=== PATIENT | female | born 1950 | race Two or more races ===

== ENCOUNTER → 2024-03-17 | Outpatient (CLI) | payer MEDICARE, SELFPAY ==
--- NOTE | 2024-03-17 08:30 | XR_ITS ---
Exam: MRI knee without contrast, left complete Date and time of exam: March 17, 2024 0843 hours INDICATIONS: Patient fell 8 months ago with injury to the knee, knee pain instability joint locking post injury Technique: Multiple axial, coronal, and sagittal sections on the knee have been obtained. T2-Weighted sagittal, fat-suppressed images, TR 3,500, TE 62, T2 weighted coronal fat-saturated images, TR 3,500, TE 62 Proton density sagittal sections, TR 1800, TE 31. T-1 weighted coronal images, TR 524, TE 13.0 Findings: Medial meniscus anterior horn intact. Medial meniscus, body is horizontal linear tear. Posterior horn medial meniscus horizontal linear tear communicating inferior articular surface near the inner margin. Lateral meniscus anterior horn is intact Lateral meniscus, body is intact Posterior horn lateral meniscus horizontal linear tear communicating inner margin Anterior cruciate ligament moderate sprain Posterior cruciate ligament appears intact. Knee effusion is small. Quadriceps and patellar tendons appear intact. There is no evidence of tendinosis. Inflammatory change or fracture of Hoffa's fat pad is not seen. Medial patellar facet demonstrates moderate thinning. Lateral patellar facet cartilage demonstrates moderate thinning. Trochlear cartilage demonstrates moderate thinning. Marrow signal adequate. Medial collateral ligament appears intact. No meniscocapsular separation is seen. Illiotibial band and fibular collateral ligament are intact. Biceps femoris tendons appear intact. Medial femoral condylar articular cartilage demonstrates moderate thinning. Lateral femoral condylar articular cartilage demonstratesmoderate thinning. Tibial plateau cartilage demonstrates moderate thinning. Impression: Tears of the medial lateral menisci as above Moderate sprain anterior cruciate ligament
== END | disposition home or self-care (01) ==
PROVIDERS: PCP Family Medicine; Referring Provider Physician Assistant Medical; Visit Provider Physician Assistant Medical
DX: S83.282A Other tear of lateral meniscus, current injury, left knee, initial encounter (principal); W19.XXXA Unspecified fall, initial encounter
CPT/HCPCS: 73721

== ENCOUNTER → 2024-03-30 | Outpatient (CLI) | payer MEDICARE, SELFPAY ==
--- NOTE | 2024-03-30 14:00 | XR_ITS ---
Examination: CT right hand, without contrast. 2-D sagittal reconstructions. 2-D coronal reconstructions. 3-D reconstructions. Date and time of exam:March 30, 2024 1345 hours INDICATIONS: Patient fell July 2023 with injury to the hand, persistent hand pain, MRI hand February 17, 2024 12 x 6 x 4 mm cystic lesion distal aspect proximal phalanx fourth digit CTDI: vol (mGy):3.27 DLP: (mGycm):86.9 Technique: Multiple 1.25 mm axial sections of the right knee have been obtained. 2-D sagittal and coronal reconstructions have been obtained. 3-D reconstructions have been obtained. Low dose protocols were performed. One or more of the following dose reduction techniques were used; automated exposure control, adjustment of the mA and/or KV according to patient size, use of iterative reconstruction technique. Findings: Significant osteopenia Cystic lesion distal aspect proximal phalanx fourth digit with narrow zone of transition with the remaining bone parenchyma measuring 8 x 7 mm There is a break in the cortex involving this cystic mass, axial image 38 Remaining osseous structures are intact IMPRESSION: Nondisplaced pathologic fracture involving cystic lesion distal aspect proximal phalanx fourth digit
== END | disposition home or self-care (01) ==
PROVIDERS: PCP Family Medicine; Referring Provider Surgery; Visit Provider Surgery
DX: M84.444A Pathological fracture, right finger(s), initial encounter for fracture (principal)
CPT/HCPCS: 73200

== ENCOUNTER → 2024-08-08 | Outpatient (CLI) | payer MEDICARE, SELFPAY ==
--- NOTE | 2024-08-08 13:20 | XR_ITS ---
Examination: Bone densitometry Date and time of exam:August 08, 2024 1346 hours INDICATIONS: Menopause age 51 history postmenopausal fracture right humerus 2 years ago, personal history osteopenia Technique: Lumbar spine and hip total bone mineralization values of an calculated. Peak reference and age match control results have been displayed. Findings: Lumbar spine total bone mineralization is0.756 gm/cm2. This is 2.6 standard deviations below peak reference. This is 0.4 standard deviations below age-matched controls. Hip total bone mineralization is 0.683 gm/cm2 This is 2.1 standard deviations below peak reference. This is 0.5 standard deviations below age-matched controls Impression: There is osteoporosis based on lumbar spine measurements. There is osteoporosis based on hip measurements Lumbar mineralization is decreased 7.2% compared with June 13, 2019 Hip mineralization is decreased 2.0% compared with June 13, 2019
== END | disposition home or self-care (01) ==
LOC: CDIM 13:13
PROVIDERS: PCP Family Medicine; Referring Provider Family Medicine; Visit Provider Family Medicine
DX: M81.0 Age-related osteoporosis without current pathological fracture (principal); M15.9 Polyosteoarthritis, unspecified
CPT/HCPCS: 77080

== ENCOUNTER 2024-08-30 07:55 | Outpatient (RCR) | payer MEDICARE, SELFPAY ==
--- NOTE | 2024-08-30 08:12 | PT.OIERPT ---
PT OP Initial Eval Patient Information Outpatient Physical Therapy Treatment Date: 08/30/24 Visit Reasons: left finger surgery Medical Diagnosis: M79.645 M79.642 Treatment Dx #1: L ring finger pain Treatment Dx #2: Decreased ROM of L ring finger Start of Care: 08/30/24 Date of Onset: 06/15/24 Smoking Status Smoking Status: Never smoker Initial Assessment Subjective: Pt is 73 yr old female s/p benign tumor removal of R ring finger in June. Pt reports pain with bending and using the R hand. She is unable to use a pen to write, holding things like a cup, making the bed, sweeping, mopping and yardwork. 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 Pain limits PROM into flexion of PIP and DIP joints and red hat linux engineer strength is limited. Pt requires skilled therapy to meet goals and has fair rehab potential. Eval followed by [facility]. Short Term and [employer] Goals 1. Ind with [facility] 2. Improved flexion of PIP joint to 80 deg and DIP to 75 deg to make full fist 3. Improved red hat linux engineer strength of R hand to at least 40 lbs 4. Pt will hold a cup with R hand for 1 minute Treatment Plan ? 1. Manual therapy ? 2. Therex ? 3. Modalities as indicated, moist heat, ice, estim Frequency and Duration: 2x a week for 12 Rx sessions plus the evaluation Certification Dates: 08/30/24 to 11/29/24 Procedure Charges OP PT Eval Mod Complex 30 minutes: Yes
== END 2024-09-02 23:59 | disposition home or self-care (01) ==
LOC: CPTX 07:55
PROVIDERS: PCP Family Medicine; Referring Provider Nurse Practitioner Gerontology; Visit Provider Nurse Practitioner Gerontology
DX: M79.645 Pain in left finger(s) (principal); M79.642 Pain in left hand; Z98.890 Other specified postprocedural states; I10 Essential (primary) hypertension
CPT/HCPCS: 97162

== ENCOUNTER 2024-09-13 17:00 | Outpatient (RCR) | payer MEDICARE, SELFPAY ==
--- NOTE | 2024-09-05 18:55 | PT.ODAYNRPT ---
PT Outpatient Daily Note OP Daily Note Outpatient Physical Therapy Treatment Date: 09/05/24 Visit Reasons: Rt little finger surgery Subjective: Same as time of evaluation Objective: See F/S for therex MT: PROM long finger into flexion x7' MHP L hand x5' Assessment: Scar tissue adhesions limit L ring finger flexion Plan: Improve L ring finger ROM Length of Time (minutes) of Treatment: 30 Minutes Procedure Charges Therapeutic Exercise 30 minutes: Yes
--- NOTE | 2024-09-13 17:37 | PT.ODAYNRPT ---
PT Outpatient Daily Note OP Daily Note Outpatient Physical Therapy Treatment Date: 09/13/24 Subjective: Higher pain level in L ring finger since last visit Objective: See F/S for therex MHP L hand x5' Assessment: Scar tissue adhesions limit L ring finger flexion with moderate tissue irritability. Good demo of self flexion stretches of PIP and DIP joints of ring finger. Plan: Improve L ring finger ROM Length of Time (minutes) of Treatment: 30 Minutes Procedure Charges Therapeutic Exercise 30 minutes: Yes
== END 2024-10-02 23:59 | disposition home or self-care (01) ==
LOC: CPTX 17:00
PROVIDERS: PCP Nurse Practitioner Gerontology; Referring Provider Nurse Practitioner Gerontology; Visit Provider Nurse Practitioner Gerontology
DX: M79.645 Pain in left finger(s) (principal); I10 Essential (primary) hypertension
CPT/HCPCS: 97110

== ENCOUNTER 2024-10-31 16:30 | Outpatient (RCR) | payer MEDICARE, SELFPAY ==
--- NOTE | 2024-10-04 18:00 | PT.ODAYNRPT ---
PT Outpatient Daily Note OP Daily Note Outpatient Physical Therapy Treatment Date: 10/04/24 Visit Reasons: RT little finger Subjective: Same pain level in L ring finger since last visit Objective: See F/S for therex Assessment: Scar tissue adhesions limit L ring finger flexion with moderate tissue irritability. Good demo of self flexion stretches of PIP and DIP joints of ring finger. Plan: Improve L ring finger ROM Length of Time (minutes) of Treatment: 30 Minutes Procedure Charges Therapeutic Exercise 30 minutes: Yes
--- NOTE | 2024-10-17 18:15 | PT.ODAYNRPT ---
PT Outpatient Daily Note OP Daily Note Outpatient Physical Therapy Treatment Date: 10/17/24 Visit Reasons: RT little finger Subjective: Less pain and improved ROM of L ring finger since last visit but she smashed the pinky which is bruised and painful Objective: See F/S for therex Assessment: Good demo of self flexion stretches of PIP and DIP joints of ring finger. Improved extension at PIP joint. Plan: Improve L ring finger ROM Length of Time (minutes) of Treatment: 25 Minutes Procedure Charges Therapeutic Exercise 30 minutes: Yes
--- NOTE | 2024-10-31 17:55 | PT.ODAYNRPT ---
PT Outpatient Daily Note OP Daily Note Outpatient Physical Therapy Treatment Date: 10/31/24 Visit Reasons: RT little finger Subjective: Less pain and improved ROM of L ring finger since starting therapy but continued pain with bending Objective: See F/S for therex Assessment: Lacking flexion of PIP and DIP joints of ring finger which limits making a fist. Improved extension at PIP joint. Plan: Improve L ring finger ROM Length of Time (minutes) of Treatment: 30 Minutes Procedure Charges Therapeutic Exercise 30 minutes: Yes
== END 2024-11-02 23:59 | disposition home or self-care (01) ==
LOC: CPTX 16:30
PROVIDERS: PCP Nurse Practitioner Gerontology; Referring Provider Nurse Practitioner Gerontology; Visit Provider Nurse Practitioner Gerontology
DX: M79.645 Pain in left finger(s) (principal); M79.642 Pain in left hand; I10 Essential (primary) hypertension
CPT/HCPCS: 97110